=== PATIENT | male | born 1950 | race Caucasian/White ===

== ENCOUNTER 2024-08-06 09:43 | Observation (INO) ==
[2024-08-06] MEDS: OPTIRAY 320 125ml IV ONE (10:09)
--- NOTE | 2024-08-06 10:16 | Emergency Department Note ---
Impression & Plan Right hand weakness, Hypertension, Stroke-like symptoms ED Provider Note NAME: CLARISSA SEO AGE: 73 SEX: M : 1950 ARRIVES VIA: Walk-In INFORMANT: Patient ED PROVIDER(S): Orlin Kaur MD CHIEF COMPLAINT: Right shoulder pain, stroke symptoms PLAN: Disposition: Admit MEDICAL DECISION MAKING: The patient is a pleasant 73-year-old gentleman with a past medical history of hyperlipidemia who presents to the emergency department via walk-in accompanied by his for evaluation of right upper extremity weakness and numbness which she reports began at 9 AM this morning in the setting of having right shoulder pain that he woke up with which he describes as being typical for him when he sleeps on that side. 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 He repors mild lightheadedness. He denies taking blood thinners. He reports he took 2 Excedrin when he was at work because that was all they had and understood that he should take aspirin for symptoms that he is having. He denies chest pain or history of exertional chest pain. He denies recent illness. Given the patient's last known well with onset of right upper extremity weakness stroke alert was activated from triage. On evaluation patient no acute distress, afebrile with blood pressure elevated in the 180s/100s and otherwise stable vital signs. He exhibits equivocal weakness with crane service technician though with increased intention has symmetric strength with crane service technician. Otherwise no focal neurologic deficits noted. EKG is without overt acute ischemia. 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 Chest x-ray negative for acute cardiopulmonary process per my preliminary independent or potation. Case was [place] [facility] [place] Appreciate consultation recommendations and evaluation at bedside via telestroke monitor. Following his assessment of the patient where symptoms are minimal to resolved and on further discussion of TNK, patient agreed/preferred to not recieved TNK at this time. Symptoms are suspicious for possible stroke and recommends daily baby aspirin and Plavix load. Recommends admission for further stroke assessment including MRI. CT of the head and CTA of the head and neck were negative for ICH, ischemia or severe narrowing occlusion of large vessels per formal radiology interpretation. CTA of the chest also negative for acute aortic pathology, PE or acute cardiopulmonary process otherwise. WBC, H/H and platelets within normal limits. Chemistry without metabolic acidosis. Electrolytes and LFTs are unremarkable. High-sensitivity troponin 12.5, within normal limits. UA without evidence of infection. Case was discussed with Paula Wild PAC, with Dr. Hernandez [facility] hospitalist who will evaluate the patient for admission. Triage Nursing notes reviewed and agree them. Prior/external medical records reviewed Vital Signs: reviewed Differential diagnosis: Infection, dehydration, metabolic abnormality, hypo/hyperglycemia, electrolyte disturbance, anemia, hypoxia, cardiac sources, intracerebral event, toxicologic, neurologic, as well as other pathologies. ER treatment provided: See below. Diagnostics interpreted by me: ECG: Normal sinus rhythm, 74 bpm, no ectopy, right bundle branch block, left anterior fascicular block, no overt ST ovation or depression, QTc 479 QRS 164. Cardiac Monitoring: An order for continuous cardiac monitoring was placed and demonstrated Normal sinus rhythm, 74 bpm, no ectopy. Laboratory studies: See below Imaging studies: See below Consultation(s): [place]. Diop, [facility] Paula Wild PAC, with Dr. Hernandez [facility] hospitalist. HPI: The patient is a pleasant 73-year-old gentleman with a past medical history of hyperlipidemia who presents to the emergency department via walk-in accompanied by his for evaluation of right upper extremity weakness and numbness which she reports began at 9 AM this morning in the setting of having right shoulder pain that he woke up with which he describes as being typical for him when he sleeps on that side. 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 He repors mild lightheadedness. He denies taking blood thinners. He reports he took 2 Excedrin when he was at work because that was all they had and understood that he should take aspirin for symptoms that he is having. He denies chest pain or history of exertional chest pain. He denies recent illness. ROS: See above HPI for pertinent positives & negatives. A total of 10 systems reviewed and were otherwise negative. VITALS:See Below PHYSICAL EXAMINATION: GENERAL: Awake, alert, in no distress HENT: Normocephalic, atraumatic. Oropharynx with dry mucous membranes and otherwise unremarkable. EYES: Normal conjunctiva. Sclera non-icteric. EOMI. No nystamgus. PEARRL. NECK: Supple. No nuchal rigidity. FROM. No JVD. RESPIRATORY: Clear to auscultation. CARDIAC: Regular rate, normal rhythm. Extremities warm and well perfused. Pulses equal. ABDOMEN: Soft, non-distended. No tenderness to palpation. No rebound or guarding. No masses. MUSCULOSKELETAL: Chest examination reveals no tenderness. The back is symmetrical on inspection without obvious abnormality. There is no CVA tenderness to palpation. No joint edema. LOWER EXTREMITIES: Calves are equal size bilaterally and non-tender. No edema. No discoloration. NEURO: CN II-XII grossly intact. Speech is fluent. Exhibits equivocal weakness with crane service technician though with increased intention has symmetric strength with crane service technician. 5/5 strength and SILT x 4 extremities. Cerebellar function intact including [id number], alternating palms, [id number]. SKIN: No rash or jaundice noted. 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 Low back pain syndrome Social History Smoking Status: Never smoker Hx Alcohol Use: No Hx Substance Use: No Preferred Language: [place] Costume Rental Clerk Required: No Beliefs That Will Affect Care: None Current Living Situation: Spouse Other Information That Helps Us Care for You: No Feels Safe at Home: Yes Safety Concerns: Feels Safe At This Time Allergies Allergies Allergy/AdvReac Type Severity Reaction Status Date / Time No Known Allergies Allergy Unknown Verified 02/07/22 10:45 Home Meds Home Medications Medication Instructions Recorded Confirmed aspirin 81 mg tablet,delayed 81 mg PO DAILY 04/27/20 08/06/24 release simvastatin 40 mg tablet 40 mg PO DAILY 04/27/20 08/06/24 Results & Data (ED) Vital Signs Vital Signs - 24 hr 08/06/24 09:49 08/06/24 09:57 08/06/24 10:00 Temperature 36.1 C L Temperature Source Temporal Artery Scan Pulse Rate 75 Pulse Rate [Apical] 72 Pulse Rate from SpO2 Sensor Pulse Rhythm [Apical] Pulse Strength [Apical] Respiratory Rate 16 23 Respiratory Effort / Characteristics Non-Labored Spontaneous Non-Labored Respiratory Depth Normal Normal Respiratory Pattern Blood Pressure 184/103 H Blood Pressure [Right Arm] 193/106 H Blood Pressure Mean 130 Blood Pressure Mean [Right Arm] 135 Blood Pressure Position [Right Arm] Pulse Oximetry 96 98 98 Oxygen Delivery Method Room Air Room Air Room Air Sepsis Recent Fever Within 48 Hours No Sepsis New/Unexplained Change in Mental Status No Sepsis Action Taken by Nursing No Action Required 08/06/24 10:19 08/06/24 10:23 08/06/24 10:30 Temperature Temperature Source Pulse Rate 69 Pulse Rate [Apical] 69 Pulse Rate from SpO2 Sensor Pulse Rhythm [Apical] Pulse Strength [Apical] Respiratory Rate 20 Respiratory Effort / Characteristics Non-Labored Respiratory Depth Normal Respiratory Pattern Blood Pressure 175/114 H Blood Pressure [Right Arm] 166/107 H Blood Pressure Mean 129 Blood Pressure Mean [Right Arm] 126 Blood Pressure Position [Right Arm] Pulse Oximetry 95 Oxygen Delivery Method Room Air Sepsis Recent Fever Within 48 Hours Sepsis New/Unexplained Change in Mental Status Sepsis Action Taken by Nursing 08/06/24 10:42 08/06/24 10:53 08/06/24 11:12 Temperature Temperature Source Pulse Rate 70 69 Pulse Rate [Apical] Pulse Rate from SpO2 Sensor 71 69 Pulse Rhythm [Apical] Pulse Strength [Apical] Respiratory Rate 16 14 Respiratory Effort / Characteristics Respiratory Depth Respiratory Pattern Blood Pressure 186/106 H 166/111 H 173/101 H Blood Pressure [Right Arm] Blood Pressure Mean 132 133 125 Blood Pressure Mean [Right Arm] Blood Pressure Position [Right Arm] Pulse Oximetry 98 96 Oxygen Delivery Method Sepsis Recent Fever Within 48 Hours Sepsis New/Unexplained Change in Mental Status Sepsis Action Taken by Nursing 08/06/24 11:17 08/06/24 11:30 Temperature Temperature Source Pulse Rate Pulse Rate [Apical] 66 Pulse Rate from SpO2 Sensor Pulse Rhythm [Apical] Regular Pulse Strength [Apical] Normal Respiratory Rate 20 Respiratory Effort / Characteristics Non-Labored Spontaneous Respiratory Depth Normal Respiratory Pattern Regular Blood Pressure 158/102 H Blood Pressure [Right Arm] 174/98 H Blood Pressure Mean 127 Blood Pressure Mean [Right Arm] 123 Blood Pressure Position [Right Arm] Lying Pulse Oximetry 96 Oxygen Delivery Method Room Air Sepsis Recent Fever Within 48 Hours Sepsis New/Unexplained Change in Mental Status Sepsis Action Taken by Nursing Laboratory Data Attestation: I reviewed the patient's lab results. 08/06/24 10:01 08/06/24 10:01 Lab Results 08/06/24 08/06/24 08/06/24 Range/Units 09:59 10:01 10:46 WBC 5.20 (4.8-10.8) K/ul RBC 5.50 (4.70-6.10) M/uL Hgb 16.9 (14.0-18.0) g/dl Hct 50.5 (42.0-52.0) % MCV 91.8 (80.0-100.0) fL MCH 30.7 (25.0-34.0) pg MCHC 33.5 (32.0-36.0) g/dL RDW Std Deviation 41.9 (36.4-46.3) fL RDW Coeff of Jonathan 12.5 (11.5-14.5) % Plt Count 235 (130-400) K/uL MPV 10.1 (9.4-12.4) fL Immature Gran % (Auto) 0.4 % Neut % (Auto) 65.6 % Lymph % (Auto) 19.8 % [place] % (Auto) 11.3 % Eos % (Auto) 2.3 % Baso % (Auto) 0.6 % Neut # (Auto) 3.41 (1.40-6.50) K/uL Lymph # (Auto) 1.03 L (1.20-3.40) K/uL [place] # (Auto) 0.59 (0.11-0.59) K/uL Eos # (Auto) 0.12 (0.00-0.50) K/uL Baso # (Auto) 0.03 (0.00-0.20) K/uL Immature Gran # (Auto) 0.02 (0.01-0.20) K/uL PT 10.4 (9.0-12.0) Seconds INR 1.0 (0.9-1.1) APTT 27 (21-31) Seconds PTT Ratio 1.0 Sodium 141 (136-145) mmol/L Potassium 3.8 (3.5-5.1) mmol/L Chloride 105 (98-107) mmol/L Carbon Dioxide 30 (21-32) mmol/L Anion Gap 6 (3-11) BUN 18 (6-23) mg/dl Creatinine 0.99 (0.6-1.4) mg/dl Est Cr Clr Drug Dosing 81.5 ml/min eGFR 80.94 BUN/Creatinine Ratio 18.2 (10-20) Glucose 101 H (70-99(Fasting)) mg/dl POC Glucose 106 H (70-99) mg/dl Calcium 9.5 (8.6-10.3) mg/dl Magnesium 2.0 (1.7-2.4) mg/dl Total Bilirubin 0.8 (0.2-1.0) mg/dl AST 26 (13-39) U/L ALT 29 (7-52) U/L Alkaline Phosphatase 59 (34-104) U/L Troponin I High Sens 12.5 (0-20) pg/ml Total Protein 7.0 (6.0-8.3) gm/dl Albumin 4.5 (3.4-5.0) gm/dl Globulin 2.5 (2.5-4.0) gm/dl Albumin/Globulin Ratio 1.8 (0.9-2) Urine Color Yellow Urine Appearance Clear (Clear) Urine pH 7.0 (4.5-7.5) Ur Specific [place] 1.023 (1.000-1.030) Urine Protein Negative (Negative) Urine Glucose (UA) Negative (Negative) Urine Ketones Negative (Negative) Urine Blood Negative (Negative) Urine Nitrite Negative (Negative) Urine Bilirubin Negative (Negative) Urine Urobilinogen Negative (Negative) Ur Leukocyte Esterase Negative (Negative) Administered Medications Discontinued Medications Sodium Chloride (Nss) 1,000 mls @ 999 mls/hr IV .Q1H1M ONE Stop: 08/06/24 11:07 Last Infusion: 08/06/24 12:00 Dose: Infused Documented By: Admin: 08/06/24 10:18 Dose: 999 mls/hr Documented By: KATHERINE Acetaminophen (Ofirmev) 1,000 mg in 100 mls @ 400 mls/hr IV NOW STA Stop: 08/06/24 10:21 Last Infusion: 08/06/24 10:39 Dose: Infused Documented By: Admin: 08/06/24 10:17 Dose: 400 mls/hr Documented By: KATHERINE Ioversol (Optiray 320 125ml) 119 ml IV ONCE ONE Stop: 08/06/24 10:09 Last Admin: 08/06/24 10:09 Dose: 119 ml Documented By: NED Imaging Data Radiologist's Impression: Chest CTA 08/06/24 10:05 CT angio neck with con, CT angio head w con, CT angio chest dissec wo/w con, CT head/brain wo con CLINICAL HISTORY: stroke sx, RUE weak, R shoulder pain, HTN TECHNIQUE: Contiguous axial CT images of the head were acquired from the base of the skull to the vertex without intravenous contrast administration. CT angiography of the head and neck was performed following intravenous administration of iodinated contrast. Coronal and sagittal MIPS were obtained from the axial data set and were submitted for review. Automated dose lowering techniques and/or adjustment according to patient size were utilized for this examination. All measurements were calculated based on NASCET criteria. CT DOSE: 2762.53 mGy.cm Comparison: None available at the time of this dictation. FINDINGS: CT head: There is no acute intracranial hemorrhage or evidence of acute territorial infarction. No shift of the midline structures, mass effect, or extra-axial abnormalities are shown. Lungs and soft tissues are unremarkable. CTA Neck: A 3 vessel aortic arch is shown. There is no significant atherosclerotic plaque in the aortic arch or the origins of the innominate, left common carotid, and left subclavian arteries. The common carotid, external carotid, cervical segments of the internal carotid arteries, and the cervical segments of the vertebral arteries are patent without hemodynamically significant stenosis. The left vertebral artery is dominant. CTA Head: The anterior and posterior cerebral circulations are patent. No hemodynamically significant stenosis, aneurysm, dissection, or arteriovenous malformation is shown. IMPRESSION: 1. No acute intracranial hemorrhage, evidence of acute territorial infarction, or other acute intracranial disease process. 2. No occlusion, hemodynamically significant stenosis, or dissection in the major cervical arteries. 3. No occlusion, hemodynamically significant stenosis, aneurysm, dissection, or arteriovenous malformation in the major intracranial arteries. Assessment of stenosis of the internal carotid arteries is based on NASCET criteria. ACT 112: Negative or not required by law. Electronically signed by: Oleg Marshall M.D. 08/06/2024 10:41 AM Chest X-Ray 08/06/24 10:05 XR chest 1V portable HISTORY: 73 years-old Male neuro deficit, acute stroke suspected acute stroke like symptoms COMPARISON: CTA chest of same day TECHNIQUE: AP view of the chest FINDINGS: Cardiac silhouette is mildly enlarged. There is no pneumothorax, pleural effusion or overt pulmonary edema. Mild linear subsegmental bibasilar atelectasis versus scarring. Bones appear grossly intact. IMPRESSION: No acute process. ACT 112: Negative or not required by law. The above report was generated using voice recognition software. It may contain grammatical, syntax or spelling errors. Electronically signed by: Edwin Dooley M.D. 08/06/2024 10:[address] 08/06/24 10:05 CT angio neck with con, CT angio head w con, CT angio chest dissec wo/w con, CT head/brain wo con CLINICAL HISTORY: stroke sx, RUE weak, R shoulder pain, HTN TECHNIQUE: Contiguous axial CT images of the head were acquired from the base of the skull to the vertex without intravenous contrast administration. CT angiography of the head and neck was performed following intravenous administration of iodinated contrast. Coronal and sagittal MIPS were obtained from the axial data set and were submitted for review. Automated dose lowering techniques and/or adjustment according to patient size were utilized for this examination. All measurements were calculated based on NASCET criteria. CT DOSE: 2762.53 mGy.cm Comparison: None available at the time of this dictation. FINDINGS: CT head: There is no acute intracranial hemorrhage or evidence of acute territorial infarction. No shift of the midline structures, mass effect, or extra-axial abnormalities are shown. Lungs and soft tissues are unremarkable. CTA Neck: A 3 vessel aortic arch is shown. There is no significant atherosclerotic plaque in the aortic arch or the origins of the innominate, left common carotid, and left subclavian arteries. The common carotid, external carotid, cervical segments of the internal carotid arteries, and the cervical segments of the vertebral arteries are patent without hemodynamically significant stenosis. The left vertebral artery is dominant. CTA Head: The anterior and posterior cerebral circulations are patent. No hemodynamically significant stenosis, aneurysm, dissection, or arteriovenous malformation is shown. IMPRESSION: 1. No acute intracranial hemorrhage, evidence of acute territorial infarction, or other acute intracranial disease process. 2. No occlusion, hemodynamically significant stenosis, or dissection in the major cervical arteries. 3. No occlusion, hemodynamically significant stenosis, aneurysm, dissection, or arteriovenous malformation in the major intracranial arteries. Assessment of stenosis of the internal carotid arteries is based on NASCET criteria. ACT 112: Negative or not required by law. Electronically signed by: Oleg Marshall M.D. 08/06/2024 10:41 AM Head CTA 08/06/24 10:05 CT angio neck with con, CT angio head w con, CT angio chest dissec wo/w con, CT head/brain wo con CLINICAL HISTORY: stroke sx, RUE weak, R shoulder pain, HTN TECHNIQUE: Contiguous axial CT images of the head were acquired from the base of the skull to the vertex without intravenous contrast administration. CT angiography of the head and neck was performed following intravenous administration of iodinated contrast. Coronal and sagittal MIPS were obtained from the axial data set and were submitted for review. Automated dose lowering techniques and/or adjustment according to patient size were utilized for this examination. All measurements were calculated based on NASCET criteria. CT DOSE: 2762.53 mGy.cm Comparison: None available at the time of this dictation. FINDINGS: CT head: There is no acute intracranial hemorrhage or evidence of acute territorial infarction. No shift of the midline structures, mass effect, or extra-axial abnormalities are shown. Lungs and soft tissues are unremarkable. CTA Neck: A 3 vessel aortic arch is shown. There is no significant atherosclerotic plaque in the aortic arch or the origins of the innominate, left common carotid, and left subclavian arteries. The common carotid, external carotid, cervical segments of the internal carotid arteries, and the cervical segments of the vertebral arteries are patent without hemodynamically significant stenosis. The left vertebral artery is dominant. CTA Head: The anterior and posterior cerebral circulations are patent. No hemodynamically significant stenosis, aneurysm, dissection, or arteriovenous malformation is shown. IMPRESSION: 1. No acute intracranial hemorrhage, evidence of acute territorial infarction, or other acute intracranial disease process. 2. No occlusion, hemodynamically significant stenosis, or dissection in the major cervical arteries. 3. No occlusion, hemodynamically significant stenosis, aneurysm, dissection, or arteriovenous malformation in the major intracranial arteries. Assessment of stenosis of the internal carotid arteries is based on NASCET criteria. ACT 112: Negative or not required by law. Electronically signed by: Oleg Marshall M.D. 08/06/2024 10:41 AM Neck CTA 08/06/24 10:05 CT angio neck with con, CT angio head w con, CT angio chest dissec wo/w con, CT head/brain wo con CLINICAL HISTORY: stroke sx, RUE weak, R shoulder pain, HTN TECHNIQUE: Contiguous axial CT images of the head were acquired from the base of the skull to the vertex without intravenous contrast administration. CT angiography of the head and neck was performed following intravenous administration of iodinated contrast. Coronal and sagittal MIPS were obtained from the axial data set and were submitted for review. Automated dose lowering techniques and/or adjustment according to patient size were utilized for this examination. All measurements were calculated based on NASCET criteria. CT DOSE: 2762.53 mGy.cm Comparison: None available at the time of this dictation. FINDINGS: CT head: There is no acute intracranial hemorrhage or evidence of acute territorial infarction. No shift of the midline structures, mass effect, or extra-axial abnormalities are shown. Lungs and soft tissues are unremarkable. CTA Neck: A 3 vessel aortic arch is shown. There is no significant atherosclerotic plaque in the aortic arch or the origins of the innominate, left common carotid, and left subclavian arteries. The common carotid, external carotid, cervical segments of the internal carotid arteries, and the cervical segments of the vertebral arteries are patent without hemodynamically significant stenosis. The left vertebral artery is dominant. CTA Head: The anterior and posterior cerebral circulations are patent. No hemodynamically significant stenosis, aneurysm, dissection, or arteriovenous malformation is shown. IMPRESSION: 1. No acute intracranial hemorrhage, evidence of acute territorial infarction, or other acute intracranial disease process. 2. No occlusion, hemodynamically significant stenosis, or dissection in the major cervical arteries. 3. No occlusion, hemodynamically significant stenosis, aneurysm, dissection, or arteriovenous malformation in the major intracranial arteries. Assessment of stenosis of the internal carotid arteries is based on NASCET criteria. ACT 112: Negative or not required by law. Electronically signed by: Oleg Marshall M.D. 08/06/2024 10:41 AM Discharge Plan Visit Data Chief Complaint: Stroke Alert Stated Complaint: RIGHT SIDED NUMBNESS, THINKS MAY BE HEART ATT ED Provider: Orlin Kaur Discharge Problem: Right hand weakness, Hypertension, Stroke-like symptoms Patient Disposition: Admitted As Inpatient Discharge Instructions Interventions: ED Discharge Assessment Last Done: 08/06/24 14:34 Discharge Problem: Hypertension Qualifiers: Hypertension type: unspecified Qualified Code(s): I10 - Essential (primary) hypertension
[2024-08-06 10:17] LABS: Basophils # (auto) 0.03 K/uL (0.00-0.20); Basophils % (auto) 0.6 %; Eosinophils # (auto) 0.12 K/uL (0.00-0.50); Eosinophils % (auto) 2.3 %; Hematocrit (blood only) 50.5 % (42.0-52.0); Hemoglobin 16.9 g/dl (14.0-18.0); Immature Granulocytes # (auto) 0.02 K/uL (0.01-0.20); Immature Granulocytes % (auto) 0.4 %; Lymphocytes # (auto) 1.03 K/uL (1.20-3.40); Lymphocytes % (auto) 19.8 %; Mean Corpuscular Hemoglobin 30.7 pg (25.0-34.0); Mean Corpuscular Hgb Conc 33.5 g/dL (32.0-36.0); Mean Corpuscular Volume 91.8 fL (80.0-100.0); Mean Platelet Volume 10.1 fL (9.4-12.4); Monocytes # (auto) 0.59 K/uL (0.11-0.59); Monocytes % (auto) 11.3 %; Neutrophils # (auto) 3.41 K/uL (1.40-6.50); Neutrophils % (auto) 65.6 %; Platelet Count 235 K/uL (130-400); RDW Coefficient of Variation 12.5 % (11.5-14.5); RDW Standard Deviation 41.9 fL (36.4-46.3)
[2024-08-06] MEDS: ACETAMINOPHEN 1,000 MG/100 ML VIAL IV STA (10:17)
[2024-08-06] MEDS: SODIUM CHLORIDE 0.9% 1,000 ML IV ONE (10:18)
[2024-08-06 10:40] LABS: Albumin Globulin Ratio 1.8 (0.9-2); Albumin Level 4.5 gm/dl (3.4-5.0); BUN Creatinine Ratio 18.2 (10-20); Bilirubin,Total 0.8 mg/dl (0.2-1.0); Calcium 9.5 mg/dl (8.6-10.3); Creatinine Clr Calc Pharmacy 81.5 ml/min; Globulin 2.5 gm/dl (2.5-4.0); Potassium 3.8 mmol/L (3.5-5.1)
--- NOTE | 2024-08-06 10:42 | CT Scan Report ---
CT angio neck with con, CT angio head w con, CT angio chest dissec wo/w con, CT head/brain wo con CLINICAL HISTORY: stroke sx, RUE weak, R shoulder pain, HTN TECHNIQUE: Contiguous axial CT images of the head were acquired from the base of the skull to the nahum jigar without intravenous contrast administration. CT angiography of the head and neck was performed f ollowing intravenous administration of iodinated contrast. Coronal and sagittal MIPS were obtained fr om the axial data set and were submitted for review. Automated dose lowering techniques and/or adjus tment according to patient size were utilized for this examination. All measurements were calculated based on NASCET criteria. CT DOSE: 2762.53 mGy.cm Comparison: None available at the time of this dictation. FINDINGS: CT head: There is no acute intracranial hemorrhage or evidence of acute territorial infarction. No sh ift of the midline structures, mass effect, or extra-axial abnormalities are shown. Lungs and soft tissues are unremarkable. CTA Neck: A 3 vessel aortic arch is shown. There is no significant atherosclerotic plaque in the aor tic arch or the origins of the innominate, left common carotid, and left subclavian arteries. The co mmon carotid, external carotid, cervical segments of the internal carotid arteries, and the cervical segments of the vertebral arteries are patent without hemodynamically significant stenosis. The left vertebral artery is dominant. CTA Head: The anterior and posterior cerebral circulations are patent. No hemodynamically significan t stenosis, aneurysm, dissection, or arteriovenous malformation is shown. IMPRESSION: 1. No acute intracranial hemorrhage, evidence of acute territorial infarction, or other acute intrac ranial disease process. 2. No occlusion, hemodynamically significant stenosis, or dissection in the major cervical arteries. 3. No occlusion, hemodynamically significant stenosis, aneurysm, dissection, or arteriovenous malfor mation in the major intracranial arteries. Assessment of stenosis of the internal carotid arteries is based on NASCET criteria. ACT 112: Negative or not required by law. Electronically signed by: Oleg Marshall M.D. 08/06/2024 10:41 AM
[2024-08-06 10:46] LABS: Troponin I High Sensitivity 12.5 pg/ml (0-20)
--- NOTE | 2024-08-06 10:57 | XRay Report ---
XR chest 1V portable HISTORY: 73 years-old Male neuro deficit, acute stroke suspected acute stroke like symptoms COMPARISON: CTA chest of same day TECHNIQUE: AP view of the chest FINDINGS: Cardiac silhouette is mildly enlarged. There is no pneumothorax, pleural effusion or overt pulmonary edema. Mild linear subsegmental bibasilar atelectasis versus scarring. Bones appear grossly intact. IMPRESSION: No acute process. ACT 112: Negative or not required by law. The above report was generated using voice recognition software. It may contain grammatical, syntax o r spelling errors. Electronically signed by: Edwin Dooley M.D. 08/06/2024 10:55 AM
[2024-08-06 11:07] LABS: Appearance Urine Clear (Clear); Bilirubin Urine Negative (Negative); Blood Urine Negative (Negative); Color Urine Yellow; Glucose Urine UA Negative (Negative); Ketones Urine Negative (Negative); Leukocyte Esterase Urine Negative (Negative); Nitrite Urine Negative (Negative); Protein Urine Negative (Negative); Specific Gravity Urine 1.023 (1.000-1.030); Urobilinogen Urine Negative (Negative)
--- NOTE | 2024-08-06 11:30 | Electrocardiogram Report ---
Test Reason : Blood Pressure : */* mmHG Vent. Rate : 74 BPM Atrial Rate : 74 BPM P-R Int : 180 ms QRS Dur : 164 ms QT Int : 432 ms P-R-T Axes : 36 -69 -8 degrees QTcB Int : 479 ms Normal sinus rhythm Right bundle branch block Left anterior fascicular block Bifascicular block Abnormal ECG When compared with ECG of 07-Feb-2005 22:40, DE interval has decreased (RBBB and left anterior fascicular block) is now Present Confirmed by Thee Elizondo ([id number]) on 08/06/2024 11:29:49 AM Referred By: REFERRED SELF Confirmed By: Thee Elizondo
--- NOTE | 2024-08-06 11:48 | Communication Note ---
Date of Service: August 06, 2024 Attending Addendum: Case reviewed with the advanced practitioner. I have personally performed a history and physical examination on the patient. I have reviewed the advanced practitioner's documentation on the date of service referenced in note, and I agree with, and take responsibility for the plan of care. please refer to her notes for full details patient seen and examined, records reviewed by myself as well on exam, patient seen resting in bed, comfortable R upper arm weakness resolved R hand weakness mostly resolved no chest pain, dyspnea, palpitations, dizziness, headache no other neurologic symptoms VS noted and reviewed oriented x 3, not in distress, speaks in sentences with no effort nor accessory muscle use normal rate, regular rhythm, no murmurs clear breath sounds bilaterally non distended, soft, nontender no bipedal edema, erythema, warmth Neuro- alert, oriented x 3; CN 2-12 grossly intact; motor 5/5 bilate rally;sensation 100% on all extremities; no other gross focal neurologic deficits Skin- warm & dry all labs, imaging noted and reviewed ASSESSMENT AND PLAN> 73 year old male with history of dyslipidemia, pre diabetes presenting with R upper arm weakness which started at 9am today. RIGHT UPPER ARM, HAND WEAKNESS, POSSIBLE TIA CT head: no acute process CT angio head and neck: unrevealing Brain MRI: no acute process symptoms already resolving at the ER Stroke Alert called, [facility] did NOT recommend TNK already on ASA, recommend to add Plavix already on Simvastatin Stroke Protocol ordered keep systolic BP 160s-170s for permissive hypertension Echocardiogram Lipid Panel, A1c [facility] Neurology consultation HYPERTENSION no known history permissive Hypertension in light of possible TIA vs acute CVA keep systolic BP 160s-170s for permissive hypertension PRN Hydralazine DYSLIPIDEMIA already on Atorvastatin 40mg po daily check lipid profile PREDIABETES check A1c BIFASCICULAR BLOCK not seen on previous EKG many years ago check echo monitor in Telemetry other diagnoses and plan of care as per advanced practitioner's notes Robert Hernandez MD
[2024-08-06 12:02] LABS: Partial Thromboplastin Time 27 Seconds (21-31); Prothrombin Time 10.4 Seconds (9.0-12.0)
--- NOTE | 2024-08-06 12:34 | History & Physical Report ---
Date of Service August 06, 2024 Assessment & Plan (1) Stroke-like symptoms: (2) Hypertension: Plan Assessment and plan: RUE weakness CVA ruled outpossible TIA: Head/neck/chest CTA unremarkable, head CT negative Head MRI negative, differential diagnosis includes carpal tunnel/cervical radiculopathy Permissive hypertension x 24 hoursPlavix/aspirin recommended by neuro Check echo/head MRI, continue neurochecks Hx HLD/prediabetes: Continue statin, check lipid panel, check A1c Full code DVT prophylaxis: SCDs A total of 60 minutes was spent on chart review/reviewing lab/diagnostic testing/discussion with consultants/facilitation of plan of care History of Present Illness Chief Complaint: Right upper extremity numbness. Primary Care Provider: Zeyad Brownlee MD The patient is a 73-year-old male with a past medical history of hyperlipidemia, prediabetes, transient global amnesia, prostate CA who presents to the ED on 08/06/2024 with complaints of right upper extremity numbness/weakness. Patient reports waking up this morning around 9 AM noticing that his hand felt numb and that the numbness traveled up to his right arm. He took his 81 mg of aspirin and took 2 Excedrin and came to the ER. He reports being compliant with his daily aspirin. On arrival to the ED stroke alert was called and neurostroke recommended Plavix load and daily aspirin. TNK was not indicated at this time. The patient had no other neurodeficits on exam Head CT was negative. Head/neck CTA was negative. Chest CTA was negative The patient's labs are fairly unremarkable The patient will be admitted for further monitoring Allergies Allergy/AdvReac Type Severity Reaction Status Date / Time No Known Allergies Allergy Unknown Verified 02/07/22 10:45 Home Medications Medication Instructions Recorded Confirmed Type aspirin 81 mg tablet,delayed 81 mg PO DAILY 04/27/20 08/06/24 History release simvastatin 40 mg tablet 40 mg PO DAILY 04/27/20 08/06/24 History Past Med/Surg History Problem List (Updated 08/06/24 @ 11:31 by Orlin Kaur MD) Stroke-like symptoms (Acute) Hypertension (Acute) Right hand weakness (Acute) 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 Low back pain syndrome Social History Smoking Status: Never smoker Feels Safe at Home: Yes Review of Systems Review of Systems: All systems reviewed & are unremarkable except as noted in HPI & below Physical Exam Constitutional: WD/WN, vitals as above Eyes: PERRL, conjunctivae normal, anicteric sclerae ENMT: external ear and nose normal, oropharynx normal Neck: trachea midline, no thyromegaly Respiratory: normal respiratory effort, lungs clear to auscultation Cardiovascular: RRR, no murmur, no edema Gastrointestinal (Abdomen): normal bowel sounds, soft, nontender, no hepatosplenomegaly Musculoskeletal: no cyanosis or clubbing, extremities motor strength 5/5 Skin: no rashes, warm and dry Neurologic: PERRL, EOMI, accommodation nl, no face palsy, no dysarthria (Still complaining of right hand numbness, strength is equal) Psychiatric: A+Ox3, euthymic affect Lymphatic: no cervical or axillary lymphadenopathy Results & Data Results & Data Vital Signs (Past 12 Hours) Vital Signs Temp Pulse Pulse Resp BP BP Pulse Ox 08/06/24 11:17 66 20 174/98 H 96 08/06/24 10:23 69 08/06/24 10:19 69 20 166/107 H 95 08/06/24 10:00 98 08/06/24 09:57 72 23 193/106 H 98 08/06/24 09:49 36.1 C L 75 16 184/103 H 96 O2 Del Method 08/06/24 11:17 Room Air 08/06/24 10:23 08/06/24 10:19 Room Air 08/06/24 10:00 Room Air 08/06/24 09:57 Room Air 08/06/24 09:49 Room Air Diagnostic Findings Laboratory Results WBC 5.20 K/ul (4.8-10.8) 08/06/24 10:01 RBC 5.50 M/uL (4.70-6.10) 08/06/24 10:01 Hgb 16.9 g/dl (14.0-18.0) 08/06/24 10:01 Hct 50.5 % (42.0-52.0) 08/06/24 10:01 MCV 91.8 fL (80.0-100.0) 08/06/24 10:01 MCH 30.7 pg (25.0-34.0) 08/06/24 10:01 MCHC 33.5 g/dL (32.0-36.0) 08/06/24 10:01 RDW Std Deviation 41.9 fL (36.4-46.3) 08/06/24 10:01 RDW Coeff of Jonathan 12.5 % (11.5-14.5) 08/06/24 10:01 Plt Count 235 K/uL (130-400) 08/06/24 10:01 MPV 10.1 fL (9.4-12.4) 08/06/24 10:01 Immature Gran % (Auto) 0.4 % 08/06/24 10:01 Neut % (Auto) 65.6 % 08/06/24 10:01 Lymph % (Auto) 19.8 % 08/06/24 10:01 [place] % (Auto) 11.3 % 08/06/24 10:01 Eos % (Auto) 2.3 % 08/06/24 10:01 Baso % (Auto) 0.6 % 08/06/24 10:01 Neut # (Auto) 3.41 K/uL (1.40-6.50) 08/06/24 10:01 Lymph # (Auto) 1.03 K/uL (1.20-3.40) L 08/06/24 10:01 [place] # (Auto) 0.59 K/uL (0.11-0.59) 08/06/24 10:01 Eos # (Auto) 0.12 K/uL (0.00-0.50) 08/06/24 10:01 Baso # (Auto) 0.03 K/uL (0.00-0.20) 08/06/24 10:01 Immature Gran # (Auto) 0.02 K/uL (0.01-0.20) 08/06/24 10:01 PT 10.4 Seconds (9.0-12.0) 08/06/24 10:01 INR 1.0 (0.9-1.1) 08/06/24 10:01 APTT 27 Seconds (21-31) 08/06/24 10:01 PTT Ratio 1.0 08/06/24 10:01 Sodium 141 mmol/L (136-145) 08/06/24 10:01 Potassium 3.8 mmol/L (3.5-5.1) 08/06/24 10:01 Chloride 105 mmol/L (98-107) 08/06/24 10:01 Carbon Dioxide 30 mmol/L (21-32) 08/06/24 10:01 Anion Gap 6 (3-11) 08/06/24 10:01 BUN 18 mg/dl (6-23) 08/06/24 10:01 Creatinine 0.99 mg/dl (0.6-1.4) 08/06/24 10:01 Est Cr Clr Drug Dosing 81.5 ml/min 08/06/24 10:01 eGFR 80.94 08/06/24 10:01 BUN/Creatinine Ratio 18.2 (10-20) 08/06/24 10:01 Glucose 101 mg/dl (70-99(Fasting)) H 08/06/24 10:01 POC Glucose 106 mg/dl (70-99) H 08/06/24 09:59 Calcium 9.5 mg/dl (8.6-10.3) 08/06/24 10:01 Magnesium 2.0 mg/dl (1.7-2.4) 08/06/24 10:01 Total Bilirubin 0.8 mg/dl (0.2-1.0) 08/06/24 10:01 AST 26 U/L (13-39) 08/06/24 10:01 ALT 29 U/L (7-52) 08/06/24 10:01 Alkaline Phosphatase 59 U/L (34-104) 08/06/24 10:01 Troponin I High Sens 12.5 pg/ml (0-20) 08/06/24 10:01 Total Protein 7.0 gm/dl (6.0-8.3) 08/06/24 10:01 Albumin 4.5 gm/dl (3.4-5.0) 08/06/24 10:01 Globulin 2.5 gm/dl (2.5-4.0) 08/06/24 10:01 Albumin/Globulin Ratio 1.8 (0.9-2) 08/06/24 10:01 Urine Color Yellow 08/06/24 10:46 Urine Appearance Clear (Clear) 08/06/24 10:46 Urine pH 7.0 (4.5-7.5) 08/06/24 10:46 Ur Specific [place] 1.023 (1.000-1.030) 08/06/24 10:46 Urine Protein Negative (Negative) 08/06/24 10:46 Urine Glucose (UA) Negative (Negative) 08/06/24 10:46 Urine Ketones Negative (Negative) 08/06/24 10:46 Urine Blood Negative (Negative) 08/06/24 10:46 Urine Nitrite Negative (Negative) 08/06/24 10:46 Urine Bilirubin Negative (Negative) 08/06/24 10:46 Urine Urobilinogen Negative (Negative) 08/06/24 10:46 Ur Leukocyte Esterase Negative (Negative) 08/06/24 10:46 Impressions Chest CTA 08/06/24 10:05 CT angio neck with con, CT angio head w con, CT angio chest dissec wo/w con, CT head/brain wo con CLINICAL HISTORY: stroke sx, RUE weak, R shoulder pain, HTN TECHNIQUE: Contiguous axial CT images of the head were acquired from the base of the skull to the vertex without intravenous contrast administration. CT angiography of the head and neck was performed following intravenous administration of iodinated contrast. Coronal and sagittal MIPS were obtained from the axial data set and were submitted for review. Automated dose lowering techniques and/or adjustment according to patient size were utilized for this examination. All measurements were calculated based on NASCET criteria. CT DOSE: 2762.53 mGy.cm Comparison: None available at the time of this dictation. FINDINGS: CT head: There is no acute intracranial hemorrhage or evidence of acute territorial infarction. No shift of the midline structures, mass effect, or extra-axial abnormalities are shown. Lungs and soft tissues are unremarkable. CTA Neck: A 3 vessel aortic arch is shown. There is no significant atherosclerotic plaque in the aortic arch or the origins of the innominate, left common carotid, and left subclavian arteries. The common carotid, external esquivel tid, cervical segments of the internal carotid arteries, and the cervical segments of the vertebral arteries are patent without hemodynamically significant stenosis. The left vertebral artery is dominant. CTA Head: The anterior and posterior cerebral circulations are patent. No hemodynamically significant stenosis, aneurysm, dissection, or arteriovenous malformation is shown. IMPRESSION: 1. No acute intracranial hemorrhage, evidence of acute territorial infarction, or other acute intracranial disease process. 2. No occlusion, hemodynamically significant stenosis, or dissection in the major cervical arteries. 3. No occlusion, hemodynamically significant stenosis, aneurysm, dissection, or arteriovenous malformation in the major intracranial arteries. Assessment of stenosis of the internal carotid arteries is based on NASCET criteria. ACT 112: Negative or not required by law. Electronically signed by: Oleg Marshall M.D. 08/06/2024 10:41 AM Chest X-Ray 08/06/24 10:05 XR chest 1V portable HISTORY: 73 years-old Male neuro deficit, acute stroke suspected acute stroke like symptoms COMPARISON: CTA chest of same day TECHNIQUE: AP view of the chest FINDINGS: Cardiac silhouette is mildly enlarged. There is no pneumothorax, pleural effusion or overt pulmonary edema. Mild linear subsegmental bibasilar atelectasis versus scarring. Bones appear grossly intact. IMPRESSION: No acute process. ACT 112: Negative or not required by law. The above report was generated using voice recognition software. It may contain grammatical, syntax or spelling errors. Electronically signed by: Edwin Dooley M.D. 08/06/2024 10:[address] 08/06/24 10:05 CT angio neck with con, CT angio head w con, CT angio chest dissec wo/w con, CT head/brain wo con CLINICAL HISTORY: stroke sx, RUE weak, R shoulder pain, HTN TECHNIQUE: Contiguous axial CT images of the head were acquired from the base of the skull to the vertex without intravenous contrast administration. CT angiography of the head and neck was performed following intravenous administration of iodinated contrast. Coronal and sagittal MIPS were obtained from the axial data set and were submitted for review. Automated dose lowering techniques and/or adjustment according to patient size were utilized for this examination. All measurements were calculated based on NASCET criteria. CT DOSE: 2762.53 mGy.cm Comparison: None available at the time of this dictation. FINDINGS: CT head: There is no acute intracranial hemorrhage or evidence of acute territorial infarction. No shift of the midline structures, mass effect, or extra-axial abnormalities are shown. Lungs and soft tissues are unremarkable. CTA Neck: A 3 vessel aortic arch is shown. There is no significant atherosclerotic plaque in the aortic arch or the origins of the innominate, left common carotid, and left subclavian arteries. The common carotid, external carotid, cervical segments of the internal carotid arteries, and the cervical segments of the vertebral arteries are patent without hemodynamically significant stenosis. The left vertebral artery is dominant. CTA Head: The anterior and posterior cerebral circulations are patent. No hemodynamically significant stenosis, aneurysm, dissection, or arteriovenous malformation is shown. IMPRESSION: 1. No acute intracranial hemorrhage, evidence of acute territorial infarction, or other acute intracranial disease process. 2. No occlusion, hemodynamically significant stenosis, or dissection in the major cervical arteries. 3. No occlusion, hemodynamically significant stenosis, aneurysm, dissection, or arteriovenous malformation in the major intracranial arteries. Assessment of stenosis of the internal carotid arteries is based on NASCET criteria. ACT 112: Negative or not required by law. Electronically signed by: Oleg Marshall M.D. 08/06/2024 10:41 AM Head CTA 08/06/24 10:05 CT angio neck with con, CT angio head w con, CT angio chest dissec wo/w con, CT head/brain wo con CLINICAL HISTORY: stroke sx, RUE weak, R shoulder pain, HTN TECHNIQUE: Contiguous axial CT images of the head were acquired from the base of the skull to the vertex without intravenous contrast administration. CT angiography of the head and neck was performed following intravenous administration of iodinated contrast. Coronal and sagittal MIPS were obtained from the axial data set and were submitted for review. Automated dose lowering techniques and/or adjustment according to patient size were utilized for this examination. All measurements were calculated based on NASCET criteria. CT DOSE: 2762.53 mGy.cm Comparison: None available at the time of this dictation. FINDINGS: CT head: There is no acute intracranial hemorrhage or evidence of acute territorial infarction. No shift of the midline structures, mass effect, or extra-axial abnormalities are shown. Lungs and soft tissues are unremarkable. CTA Neck: A 3 vessel aortic arch is shown. There is no significant atherosclerotic plaque in the aortic arch or the origins of the innominate, left common carotid, and left subclavian arteries. The common carotid, external carotid, cervical segments of the internal carotid arteries, and the cervical segments of the vertebral arteries are patent without hemodynamically significant stenosis. The left vertebral artery is dominant. CTA Head: The anterior and posterior cerebral circulations are patent. No hemodynamically significant stenosis, aneurysm, dissection, or arteriovenous malformation is shown. IMPRESSION: 1. No acute intracranial hemorrhage, evidence of acute territorial infarction, or other acute intracranial disease process. 2. No occlusion, hemodynamically significant stenosis, or dissection in the major cervical arteries. 3. No occlusion, hemodynamically significant stenosis, aneurysm, dissection, or arteriovenous malformation in the major intracranial arteries. Assessment of stenosis of the internal carotid arteries is based on NASCET criteria. ACT 112: Negative or not required by law. Electronically signed by: Oleg Marshall M.D. 08/06/2024 10:41 AM Neck CTA 08/06/24 10:05 CT angio neck with con, CT angio head w con, CT angio chest dissec wo/w con, CT head/brain wo con CLINICAL HISTORY: stroke sx, RUE weak, R shoulder pain, HTN TECHNIQUE: Contiguous axial CT images of the head were acquired from the base of the skull to the vertex without intravenous contrast administration. CT angiography of the head and neck was performed following intravenous administration of iodinated contrast. Coronal and sagittal MIPS were obtained from the axial data set and were submitted for review. Automated dose lowering techniques and/or adjustment according to patient size were utilized for this examination. All measurements were calculated based on NASCET criteria. CT DOSE: 2762.53 mGy.cm Comparison: None available at the time of this dictation. FINDINGS: CT head: There is no acute intracranial hemorrhage or evidence of acute territorial infarction. No shift of the midline structures, mass effect, or extra-axial abnormalities are shown. Lungs and soft tissues are unremarkable. CTA Neck: A 3 vessel aortic arch is shown. There is no significant atherosclerotic plaque in the aortic arch or the origins of the innominate, left common carotid, and left subclavian arteries. The common carotid, external carotid, cervical segments of the internal carotid arteries, and the cervical segments of the vertebral arteries are patent without hemodynamically significant stenosis. The left vertebral artery is dominant. CTA Head: The anterior and posterior cerebral circulations are patent. No hemodynamically significant stenosis, aneurysm, dissection, or arteriovenous malformation is shown. IMPRESSION: 1. No acute intracranial hemorrhage, evidence of acute territorial infarction, or other acute intracranial disease process. 2. No occlusion, hemodynamically significant stenosis, or dissection in the major cervical arteries. 3. No occlusion, hemodynamically significant stenosis, aneurysm, dissection, or arteriovenous malformation in the major intracranial arteries. Assessment of stenosis of the internal carotid arteries is based on NASCET criteria. ACT 112: Negative or not required by law. Electronically signed by: Oleg Marshall M.D. 08/06/2024 10:41 AM Brain MRI 08/06/24 11:48 MRI OF THE BRAIN WITHOUT IV CONTRAST CLINICAL HISTORY: Right upper extremity numbness. Weakness. Dizziness. COMPARISON STUDY: CT of the brain dated 08/06/2024. TECHNIQUE: MRI of the brain was performed utilizing various T1 and T2-weighted sequences in the axial, sagittal, and coronal planes. IV contrast was not administered for this examination. FINDINGS: Brain parenchyma: There is age-related involutional change noted moderate subcortical and periventricular microangiopathic disease. There is no hemorrhage or mass effect. There is no restricted diffusion to suggest acute ischemia. Gutierrez-white matter differentiation is preserved. No extra-axial fluid collection is seen. The cerebellar tonsils are normal in configuration. Ventricles, sulci, and cisterns: Prominent secondary to involutional change. Pituitary and sella: Unremarkable. Intracranial vasculature: Normal flow voids are maintained at the skull base. Orbits: The bony orbits are grossly intact. Orbital contents are normal in appearance. Sinuses and mastoids: Clear. Calvarium: Unremarkable. Cervical cord: Partially visualized cervical spinal cord is normal in morphology and signal intensity. IMPRESSION: No acute intracranial abnormality. ACT 112: Negative or not required by law. Electronically signed by: Tahir Medel M.D. 08/06/2024 12:57 PM
--- NOTE | 2024-08-06 12:58 | Magnetic Resonance Report ---
MRI OF THE BRAIN WITHOUT IV CONTRAST CLINICAL HISTORY: Right upper extremity numbness. Weakness. Dizziness. COMPARISON STUDY: CT of the brain dated 08/06/2024. TECHNIQUE: MRI of the brain was performed utilizing various T1 and T2-weighted sequences in the axial , sagittal, and coronal planes. IV contrast was not administered for this examination. FINDINGS: Brain parenchyma: There is age-related involutional change noted moderate subcortical and periventric ular microangiopathic disease. There is no hemorrhage or mass effect. There is no restricted diffusio n to suggest acute ischemia. Gutierrez-white matter differentiation is preserved. No extra-axial fluid col lection is seen. The cerebellar tonsils are normal in configuration. Ventricles, sulci, and cisterns: Prominent secondary to involutional change. Pituitary and sella: Unremarkable. Intracranial vasculature: Normal flow voids are maintained at the skull base. Orbits: The bony orbits are grossly intact. Orbital contents are normal in appearance. Sinuses and mastoids: Clear. Calvarium: Unremarkable. Cervical cord: Partially visualized cervical spinal cord is normal in morphology and signal intensity . IMPRESSION: No acute intracranial abnormality. ACT 112: Negative or not required by law. Electronically signed by: Tahir Medel M.D. 08/06/2024 12:57 PM
[2024-08-06] MEDS ORDERED: PHARMACIST DISCHARGE MED REC CONSULT PRN (14:40)
[2024-08-06] MEDS ORDERED: hydrALAZINE HCL 20 MG/ML VIAL IV PRN (14:40)
[2024-08-06] MEDS ORDERED: ACETAMINOPHEN 325 MG TAB PO PRN (14:40)
--- OUTSIDE RECORDS SUMMARY | 2024-08-06 15:32 | External Medical Summary | Summary of Care ---
Author Name Unknown Organization [facility] Address [address] [place] [address] Phone [phone] Care Team Providers Care Regional Service Manager Name Role Phone Zeyad Brownlee MD Primary Care Provider + Reason for Visit * Reason Comments eRx-Medication Refill Encounter Details Date Type Department Care Team (Late st Contact Info) Description 02/21/2024 Refill General Internal Medicine [facility] [address] [place] [address] Zeyad Brownlee MD [address] [place] [address] Mixed hyperlipidemia Allergies No known active allergiesdocumented as of this encounter (statuses as of 02/22/2024) Medications Medication Sig Dispensed Refills Start Date End Date Status fish oil concentrate (OMEGA-3) 1000 MG CAPS Take 1 Capsule by mouth in the morning. 60 Cap 5 11/05/2018 Active Ibuprofen 200 MG Oral Tablet Take 1 Tablet by mouth every 4 hours as needed for Pain. 100 Tab 5 11/05/2018 Active Multiple Vitamin Tablet Take 1 Tablet by mouth in the morning. 0 11/05/2018 Active Sildenafil Citrate 25 MG Oral Tablet Take 1 Tablet by mouth once. 1-4 hours before intercourse, no more than 1 dose in 24 hours. 10 Tab 5 11/05/2018 Active aspirin enteric coated 81 MG TBEC Take 1 Tablet by mouth in the morning. 100 Tab 3 11/05/2018 Active Cholecalciferol (VITAMIN D3) 2000 units Capsule Take 1 Capsule by mouth in the morning. 30 Cap 5 11/05/2018 Active Zinc 50 MG Oral Tablet Take 1 Tablet by mouth in the morning. 0 Active Simvastatin 40 MG Oral Tablet (Zocor)Indications:M ixed hyperlipidemia Take 1 Tablet by mouth every evening. 90 Tablet 3 02/14/2023 02/21/2024 Discontinue d(Refill) documented as of this encounter (statuses as of 02/22/2024) Active Problems Problem Noted Date Diagnosed Date Prediabetes 11/10/2020 Mixed hyperlipidemia 11/05/2018 History of prostate cancer 11/05/2018 Erectile dysfunction 11/05/2018 documented as of this encounter (statuses as of 02/22/2024) Immunizations Name Administration Dates Next Due COVID-19 mRNA, LNP-s, No Pre serve, 2-Dose Series (Moderna) 12/26/2020,11/21/2020 COVID-19, mRNA, LNP-s, PF, B ooster, 100mcg/0.5mg (Moderna) 08/20/2021 Covid-19, Mrna, Lnp-s, Pf, B ivalent, 50 Mcg, IM, 12 yrs and above (Moderna) 03/01/2023 HEP A - Hepatitis A (Adult > 18 yrs) 06/06/2018 Pneumococcal Conjugate Vacc, 13 Valent (Prevnar) 09/04/2017 Pneumococcal Polysaccharide PPV23 (Pneumovax) 09/07/2018 Seasonal Influenza Virus Vac cine, Unspecified Formulation 07/26/2017,08/05/2016,08/01/2014,08/13,07/06/2012 Seasonal Influenza, Quadriva lent Hd, 65+ Yrs 08/08/2022,07/30/2021,07/28/2020 Seasonal Influenza, Split, I IV3, With Preserve, Inj 07/12/2019,06/03/2018 Seasonal Influenza, Trivalen t, Adjuvanted, 65+ yrs 07/12/2019 TD - Tetanus/Diptheria (ADULT) 10/09/1998 TDAP (age 10 and older)(Boostrix) 11/16/2018 TDAP (age 11 and older)(Adacel) 07/14/2008 Typhoid Parenteral 05/30/2018 Varicella Zoster Vaccine (Adult) 02/22/2012 Zoster Vaccine Recombinant (Shingrix) 05/26/2020 ,12/20/2019 documented as of this encounter Social History Tobacco Use Types Packs/Day Years Used Date Smoking Tobacco: Never Smokeless Tobacco: Never Alcohol Use Standard Drinks/Week Comments Yes 0 (1 standard drink = 0.6 oz pur e alcohol) AUDIT-C Answer Date Recorded Frequency of Alcohol Consumption 4 or more times a week 11/05/2018 Average Number of Drinks 1 or 2 019 Frequency of Binge Drinking Never 04/2019 PHQ-2 Answer Date Recorded PHQ Adult Total Score 0 02/14/2023 Hunger Vital Sign Answer Date Recorded Within the past 12 months, y ou worried that your food would run out before you got the money to buy more. Never true 02/15/20 23 Within the past 12 months, t he food you bought just didn't last and you didn't have money to get more. Never true 02/14/2023 Sex and Gender Information Value Date Recorded Sex Assigned at Male 11/07/2019 7:52 AM EST Gender Identity Male 11/07/2019 7:52 AM EST Sexual Orientation Choose not to disclose 2019 7:52 AM EST Job Start Date Occupation Industry Not on file Not on file Not on file documented as of this encounter Miscellaneous Notes * Telephone Encounter - Joseline Fagan RPh - 02/22/2024 12:38 PM EDTRefused Prescriptions: Disp Refills Simvastatin 40 MG Oral Tablet (Zocor) 90 Tab*3 Sig: TAKE ONE TABLET BY MOUTH EVERY EVENINGRefused By: JOSELINE FAGAN for Refusal: Duplicate Request------- documented in this encounter Plan of Treatment Upcoming Encounters Date Type Department Care Team (Late st Contact Info) Description 05/13/2024 12:00 PM EDT Office Visit General Internal Medicine [facility] [address] [place] [address] Zeyad Brownlee MD [address] [place] [address] Health Maintenance Due Date Last Done Comments Hepatitis C Screening 1969 Cologuard 1996 Fecal Occult Blood Test 1996 Sigmoidoscopy 1996 COVID-19 Vaccine ( season) 2023 03/01/2023, 08/20/2021, 12/26/2020, Additional history exists Depression Screening 02/15/2024 02/14/2023 Influenza Vaccine (FLU shot) (Season Ended) 2024 08/08/2022, 08/08/2022, 08/13/2021, Additional history exists HbA1c 12/31/2024 01/01/2024, 0 03/2023, 12/01/2021, Additional history exists Colonoscopy 08/03/2025 08/03/2015 Colorectal Cancer Screening 08/03/2025 DTaP,Tdap,and Td Vaccines (3 - Td or Tdap) 11/16/2028 11/16/2018, 07/14/2008, 10/09/1998 Lipid Panel 12/31/2028 01/01/2024, 0 03/2023, 12/01/2021, Additional history exists Pneumococcal Vaccine: 65+ Years Completed 09/07/2018, 09/04/2017 Zoster Vaccines Completed 05/26/2020, 12/01, 02/22/2012 GARDASIL-HPV IMMUNIZATION SERIES Aged Out No longer eligible based on patient's age to complete this topic Hepatitis B Aged Out No longer eligi ble based on patient's age to complete this topic MENINGOCOCCAL (MENACTRA/MENVEO) Aged Out No longer eligible based on patient's age to complete this topic documented as of this encounter Medical Devices Not on filedocumented as of this encounter Visit Diagnoses Diagnosis Mixed hyperlipidemia documented in this encounter Care Teams Regional Service Manager Relationship Specialty Start Date End Date Zeyad Brownlee MD [address] [place] [address] PCP - General Internal Medicine 11/06/18 documented as of this encounter
--- OUTSIDE RECORDS SUMMARY | 2024-08-06 15:32 | External Medical Summary | Summary of Care ---
Author Name Unknown Organization [facility] Address [address] [place] [address] Phone [phone] Care Team Providers Care Guest Associate Name Role Phone Zeyad Yousif MD Primary Care Provider + Reason for Visit * Reason Onset Date Comments Medication Refill 02/21/2024 Encounter Details Date Type Department Care Team (Late st Contact Info) Description 02/21/2024 Refill General Internal Medicine [facility] [address] [place] [address] Zeyad Yousif MD [address] [place] [address] Mixed hyperlipidemia Allergies No known active allergiesdocumented [...] Tablet by mouth every evening. 90 Tablet 0 02/22/2024 Active Simvastatin 40 MG Oral Tablet (Zocor)Indications:M [...] encounter Miscellaneous Notes * Telephone Encounter - Héctor Fagan RPh - 02/22/2024 12:39 PM EDTSigned Prescriptions: Disp Refills Simvastatin 40 MG Oral Tablet (Zocor) 90 Tab*0 Sig: Take 1 Tablet by mouth every evening.Authorizing Provider: ZEYAD YOUSIF User: HÉCTOR FAGAN * Telephone Encounter - Héctor Fagan RPh - 02/22/2024 12:39 PM EDT RX authorized. Zero refills given until upcoming appt. 05/13/2024 Thank you, Héctor Fagan, PharmD Clinical Pharmacist [facility] ([facility]) [phone] 02/22/2024, 12:39 PM documented in this encounter Plan of Treatment Upcoming Encounters Date Type Department Care Team (Late st Contact Info) Description 05/13/2024 12:00 PM EDT Office Visit General Internal Medicine [facility] [address] [place] [address] Zeyad Yousif MD [address] [place] [address] Health Maintenance Due Date Last Done Comments Hepatitis C Screening 1969 Cologuard 1996 Fecal Occult Blood Test 1996 Sigmoidoscopy 1996 COVID-19 Vaccine ( season) 2023 03/01/2023, 08/20/2021, 12/26/2020, Additional history exists Depression Screening 02/15/2024 02/14/2023 Influenza Vaccine (FLU shot) (Season Ended) 2024 08/08/2022, 08/08/2022, 08/13/2021, Additional history exists HbA1c 12/31/2024 01/01/2024, 02/0 03/2023, 12/01/2021, Additional history exists Colonoscopy 08/03/2025 08/03/2015 Colorectal Cancer Screening 08/03/2025 DTaP,Tdap,and Td Vaccines (3 - Td or Tdap) 11/16/2028 11/16/2018, 07/14/2008, 10/09/1998 Lipid Panel 12/31/2028 01/01/2024, 02/0 03/2023, 12/01/2021, Additional history exists Pneumococcal Vaccine: [...] hyperlipidemia documented in this encounter Care Teams Guest Associate Relationship Specialty Start Date End Date Zeyad Yousif MD [address] [place] [address] PCP - General Internal Medicine 11/06/18 documented as of this encounter
--- OUTSIDE RECORDS SUMMARY | 2024-08-06 15:32 | External Medical Summary | Summary of Care ---
Author Name Unknown Organization [facility] Address [address] [place] [address] Phone [phone] Care Team Providers Care Exercise Physiologist Certified Name Role Phone Zeyad Brownlee MD Primary Care Provider + Reason for Visit * Reason Comments Physical-Exam Complete physical ex am. Pt denied any new concerns Encounter Details Date Type Department Care Team (Late st Contact Info) Description 05/13/2024 12:00 PM EDT Office Visit General Internal Medicine [facility] [address] [place] [address] Zeyad Brownlee MD [address] [place] [address] Mixed hyperlipidemia*; Prediabetes; Travel advice encounter; Need for hepatitis C screening test; History of prostate cancer; Encounter for long-term (current) use of medications Allergies No known active allergiesdocumented as of this encounter (statuses as of 05/13/2024) Medications Medication Sig Dispensed Refills Start Date End Date Status fish oil concentrate (OMEGA-3) 1000 MG CAPS Take 1 Capsule by mouth in the morning. 60 Cap 5 11/05/2018 Active Ibuprofen 200 MG Oral Tablet Take 1 Tablet by mouth every 4 hours as needed for Pain. 100 Tab 5 11/05/2018 Active Multiple Vitamin Tablet Take 1 Tablet by mouth in the morning. 11/05/2018 Active Sildenafil Citrate 25 MG Oral [...] 1 Tablet by mouth in the morning. Active Simvastatin 40 MG Oral Tablet (Zocor)Indications:M ixed hyperlipidemia Take 1 Tablet by mouth every evening. 90 Tablet 3 05/13/2024 Active Simvastatin 40 MG Oral Tablet (Zocor)Indications:M ixed hyperlipidemia Take 1 Tablet by mouth every evening. 90 Tablet 02/22/2024 05/13/2024 Discontinue d(Refill) documented as of this encounter (statuses as of 05/13/2024) Active Problems Problem Noted Date Diagnosed Date Prediabetes 11/10/2020 Mixed hyperlipidemia 11/05/2018 History of prostate cancer 11/05/2018 Erectile dysfunction 11/05/2018 documented as of this encounter (statuses as of 05/13/2024) Immunizations Name Administration Dates Next Due COVID-19 [...] 10/09/1998 TDAP (age 10 and older)(Boostrix) 11/16/2018 TDAP, Age 7 and older, IM (Adacel) 07/14/2008 Typhoid Parenteral 05/30/2018 Varicella Zoster Vaccine (Adult) 02/22/2012 Zoster Vaccine Recombinant (Shingrix) 05/26/2020 ,12/20/2019 documented as of this encounter Social History Tobacco Use Types Packs/Day Years Used Date Smoking Tobacco: Never Smokeless Tobacco: Never Tobacco Cessation:Counseling Given: Not Answered Alcohol Use Standard Drinks/Week Comments Yes 0 [...] money to get more. Never true 02/14/2023 Utilities Answer Date Recorded Do you have trouble paying y our heating, water, or electric bill? (Adult - for ages 18 years and over) Not on file 04/16/2024 Is your family able to pay t he heat, water, or electric bill? (Household - for ages 0-17 years) Not on file 04/16/2024 Does your family have access to good internet? (Household - for ages 0-17 years) Not on file 04/16/2024 Social Connections Answer Date Recorded How often do you feel lonely or isolated from those around you? (Adult - for ages 18 years and over) Not on file 04/16/2024 Sex and Gender Information Value Date Recorded Sex Assigned at Male 11/07/2019 7:52 AM EST Gender Identity Male 11/07/2019 7:52 AM EST Sexual Orientation Choose not to disclose 2019 7:52 AM EST Job Start Date Occupation Industry Not on file Not on file Not on file documented as of this encounter Last Filed Vital Signs Vital Sign Reading Time Taken Comments Blood Pressure 122/80 05/13/2024 11:58 AM EDT Pulse 68 05/13/2024 11:58 AM EDT Temperature 36.6 C (97.9 F) 05/13/2024 1 1:58 AM EDT Respiratory Rate - - Oxygen Saturation 98% 05/13/2024 11: 58 AM EDT Inhaled Oxygen Concentration - - Weight 101.3 kg (223 lb 6.4 oz) 024 11:58 AM EDT Height 177.2 cm (5' 9.75") 05/13/2024 1 1:58 AM EDT Body Mass Index 32.28 05/13/2024 11:58 AM EDT documented in this encounter Progress Notes * Zeyad Brownlee MD - 05/13/2024 12:26 PM EDT Chief Complaint Patient presents with Physical-Exam Complete physical exam. Pt denied any new concerns SUBJECTIVE: Leonel Alegria is a 73 year old male with PMH as below who presents for f/u lipids, pre-DM. 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 Just got ! No n/v/d. Did havelow pulse ox in 70% in [place] at altitude, but no symptoms and came up as he was there. No sob ,borges, wheezing when there. Patient Active Problem List Diagnosis Mixed hyperlipidemia History of prostate cancer Erectile dysfunction Prediabetes Current Outpatient Medications Medication Sig Dispense Refill fish oil concentrate (OMEGA-3) 1000 MG CAPS Take 1 Capsule by mouth in the morning. 60 Cap 5 Ibuprofen 200 MG Oral Tablet Take 1 Tablet by mouth every 4 hours as needed for Pain. 100 Tab 5 Multiple Vitamin Tablet Take 1 Tablet by mouth in the morning. Sildenafil Citrate 25 MG Oral Tablet Take 1 Tablet by mouth once. 1-4 hours before intercourse, no more than 1 dose in 24 hours. 10 Tab 5 aspirin enteric coated 81 MG TBEC Take 1 Tablet by mouth in the morning. 100 Tab 3 Cholecalciferol (VITAMIN D3) 2000 units Capsule Take 1 Capsule by mouth in the morning. 30 Cap 5 Zinc 50 MG Oral Tablet Take 1 Tablet by mouth in the morning. Simvastatin 40 MG Oral Tablet (Zocor) Take 1 Tablet by mouth every evening. 90 Tablet 3 No current facility-administered medications for this visit. Review of patient's allergies indicates: No Known Allergies Health Maintenance Due Topic Date Due Hepatitis C Screening Never done COVID-19 Vaccine (2022- season) 2024 Depression Screening 02/15/2024 ROS: CONSTITUTIONAL: No weakness and No fevers, sweats, or chills EYE: No recent significant change in vision, No eye pain, redness, discharge, and No diplopia PULMONARY: No cough, sputum, or hemoptysis, No wheezing, No rales, No shortness of breath, and No recent change in breathing CARDIOVASCULAR: No chest pain, No shortness of breath, No dyspnea on exertion, No orthopnea, No paroxysmal nocturnal dyspnea, No edema, No palpitations, and No syncope GASTROINTESTINAL: No abdominal pain, No change in bowel habits, No significant heartburn, No significant change in appetite, No nausea, vomiting, diarrhea, or constipation, No hematemesis, No blood in stools or black tarry stools, No abdominal bloating or early satiety, and No dysphagia ALL OTHER SYSTEMS NEGATIVE I reviewed social, PMH, PSH, and family history and updated where needed. Social History Socioeconomic History Marital status: Domestic Partner Spouse name: Not on file Number of children: 3 Years of education: Not on file Highest education level: Not on file Occupational History Occupation: [employer] Tobacco Use Smoking status: Never Smokeless tobacco: Never Substance and Sexual Activity Alcohol use: Yes Drug use: No Sexual activity: Yes Partners: Female Other Topics Concern Not on file Social History Narrative Not on file Social Determinants of Health Financial Resource Strain: Not on file Food Insecurity: No Food Insecurity (02/14/2023) Hunger Vital Sign Worried About Running Out of Food in the Last Year: Never true Ran Out of Food in the Last Year: Never true Transportation Needs: Not on file Social Connections: Unknown (04/16/2024) Social Connections How often do you feel lonely or isolated from those around you? (Adult - for ages 18 years and over): Not on file Housing Stability: Not on file Past Medical History: Diagnosis Date Erectile dysfunction 11/05/2018 History of prostate cancer 11/05/2018 Mixed hyperlipidemia 11/05/2018 Prediabetes 11/10/2020 Transient global amnesia Past Surgical History: Procedure Laterality Date LAPAROSCOPY; CHOLECYSTECTOMY 10/2004 RADICAL PROSTATE REMOVAL 10/2011 robotic REPAIR/GRAFT ACHILLES TENDON Family History Problem Relation Name Age of Onset Other (chf) Mother Heart attack Father Other (HIV) Brother OBJECTIVE: PHYSICAL EXAM: BP 122/80 | Pulse 68 | Temp 36.6 C (97.9 F) (Tympanic) | Ht 1.772 m (5' 9.75") | Wt 101.3 kg (223 lb 6.4 oz) | SpO2 98% | BMI 32.28 kg/m | BSA 2.23 m General: alert, healthy, and no distress Head: Normocephalic, No masses, lesions, tenderness or abnormalities Eye Exam: conjunctiva are pink and non-injected, sclera clear Ears: External ears normal, Canals clear, TM's Normal Heart: regular rate & rhythm, no murmur, no gallops, PMI non-displaced, S-1 normal, and S-2 normal Lungs: normal respiratory rate and rhythm, lungs clear to auscultation Abdomen: abdomen soft, non-tender, obese, normal bowel sounds, and no masses or organomegaly Psych: normal affect, no flight of ideas or tangential thought, good eye contact, no pressured speech ASSESSMENT: E78.2 Mixed hyperlipidemia (primary encounter diagnosis) R73.03 Prediabetes Z71.84 Travel advice encounter Z11.59 Need for hepatitis C screening test Z85.46 History of prostate cancer Z79.899 Encounter for long-term (current) use of medications PLAN: Mixed hyperlipidemia (Primary) - Simvastatin 40 MG Oral Tablet (Zocor); Take 1 Tablet by mouth every evening. - COMPREHENSIVE METABOLIC PANEL; Future; Expected date: 04/29/2025 - LIPID PANEL WITH DIRECT LDL IF TG IS HIGH; Future; Expected date: 04/29/2025 Cont med Labs next year Prediabetes - HEMOGLOBIN A1C; Future; Expected date: 04/29/2025 Follow A1c Travel advice encounter Discussed med to prevent altitude sickness, declines for now as never had issue, will let me know Need for hepatitis C screening test - HEPATITIS C ANTIBODY SCREEN WITH PROGRESSION TO HEPATITIS C RNA QUANTITATIVE; Future; Expected date: 04/29/2025 Discussed, will do History of prostate cancer - PSA; Future; Expected date: 04/29/2025 Encounter for long-term (current) use of medications - 25-HYDROXY VITAMIN D; Future; Expected date: 04/29/2025 Follow Up: Return in about 1 year (around 05/13/2025), or if symptoms worsen or fail to improve, forFasting Labs 2-5 Days Before Next Visit. | For: Fasting Labs 2-5 Days Before Next Visit Zeyad Brownlee MD documented in this encounter Nursing Notes * Shayna Blakely MED ASSIST - 05/13/2024 11:58 AM EDT Chief Complaint Patient presents with Physical-Exam Complete physical exam. Pt denied any new concerns documented in this encounter Plan of Treatment Upcoming Encounters Date Type Department Care Team (Late st Contact Info) Description 05/13/2025 8:40 AM EDT Office Visit General Internal Medicine [facility] [address] [facility] [place] [address] Zeyad Brownlee MD [address] [place] [address] Scheduled Orders Name Type Priority Associated Diagnoses Orde r Schedule COMPREHENSIVE METABOLIC PANEL Lab Routine Mixed hyperlipidemia Expected: 04/29/2025 (Approximate), Expires: 05/13/2025 LIPID PANEL WITH DIRECT LDL IF TG IS HIGH Lab Routine Mixed hyperlipidemia Expected: 04/29/2025, Expires: 05/13/2025 PSA Lab Routine History of prostate cancer Expected: 04/29/2025 (Approximate), Expires: 05/13/2025 HEMOGLOBIN A1C Lab Routine Prediabetes Expected: 04/29/2025 (Approximate), Expires: 05/13/2025 25-HYDROXY VITAMIN D Lab Routine Encounter for long-term (current) use of medications Expected: 04/29/2025 (Approximate), Expires: 05/13/2025 HEPATITIS C ANTIBODY SCREEN WITH PROGRESSION TO HEPATITIS C RNA QUANTITATIVE Lab Routine Need for hepatitis C screening test Expected: 04/29/2025 (Approximate), Expires: 05/13/2025 Health Maintenance Due Date Last Done Comments Hepatitis C Screening 1969 Cologuard 1996 Fecal Occult Blood Test 1996 Sigmoidoscopy 1996 COVID-19 Vaccine (2022-24 season) 2024 10/03/2023, 03/01/2023, 08/20/2021, Additional history exists Depression Screening 02/15/2024 02/14/2023 Influenza Vaccine (FLU shot) (#1) 2024 07/14/2023, 08/08/2022, 08/08/2022, Additional history exists HbA1c 12/31/2024 01/01/2024, 02/0 03/2023, 12/01/2021, Additional history exists Colonoscopy 08/03/2025 08/03/2015 Colorectal Cancer Screening 08/03/2025 DTaP,Tdap,and Td Vaccines (3 - Td or Tdap) 11/16/2028 11/16/2018, 07/14/2008, 10/09/1998 Lipid Panel 12/31/2028 01/01/2024, 02/0 03/2023, 12/01/2021, Additional history exists Pneumococcal Vaccine: 65+ Years Completed 09/07/2018, 09/04/2017 Zoster Vaccines Completed 05/26/2020, 12/01, 02/22/2012 HPV (Gardasil) Vaccine Aged Out No lo nger eligible based on patient's age to complete this topic Hepatitis B Vaccine Aged Out No longe r eligible based on patient's age to complete this topic MENINGOCOCCAL (MENACTRA/MENVEO) Aged Out No longer eligible based on patient's age to complete this topic documented as of this encounter Medical Devices Not on filedocumented as of this encounter Visit Diagnoses Diagnosis Mixed hyperlipidemia- Primary Prediabetes Other abnormal glucose Travel advice encounter Other specified counseling Need for hepatitis C screening test Special screening examination for other specified viral diseases History of prostate cancer Personal history of malignant neoplasm of prostate Encounter for long-term (current) use of medications Encounter for long-term (current) use of other medications documented in this encounter Care Teams Exercise Physiologist Certified Relationship Specialty Start Date End Date Zeyad Brownlee MD [address] [place] [address] PCP - General Internal Medicine 11/06/18 documented as of this encounter
--- NOTE | 2024-08-06 16:27 | Neurology Consultation ---
Date of Consultation August 06, 2024 Assessment & Plan (1) TIA (transient ischemic attack): R hand weakness concerning for TIA in a 73 yo M with HLD and HTN. Suspect the mechanism was small vessel, however, MRI is otherwise unremarkable for significant small vessel changes. Recommend appropriate vascular risk factor modification as follows: -- Continue statin for LDL goal <70 -- Continue aspirin and plavix for 21 days, then back to aspirin monotherapy -- Echo results pending -- HTN followup with PCP -- Neurology followup in 4-6 weeks, otherwise can be discharged from our perspective Telehealth Consultation Telehealth Information Telehealth Information: I performed this visit using a real-time telehealth connection between my location and the patients location ([facility]). After connecting through interactive tele-video, patient was identified by name and date of and/or wristband check.Patient (or authorized healthcare account service representative) was informed that this was a telemedicine visit and it was being conducted confidentially over secure lines. My office door was closed and no one else was present in the room with me.Patient (or authorized healthcare account service representative) provided consent to proceed with the visit, expressed an understanding of privacy and security of the telemedicine visit, and gave permission to have a hospital account service representative in the room in order to assist with the visit and to conduct portions of the visit, as needed. I informed the patient (or authorized healthcare account service representative) that I reviewed their record and presented the opportunity for them to ask any questions regarding the visit today. The patient agreed to participate. History of Present Illness Reason for Consultation: TIA Requesting Physician: Dr. Hernandez Attending Physician: Robert Hernandez MD History of Present Illness Leonel Alegria is a 73 yo M presenting with transient R hand weakness this morning. 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 There was potentially some numbness of the arm but no radicular pain, no upper arm weakness. Since then the weakness has resolved. He denied any associated facial weakness, gait difficutly, speech change or vision change. This has never happened to him before. Allergies Allergy/AdvReac Type Severity Reaction Status Date / Time No Known Allergies Allergy Unknown Verified 02/07/22 10:45 Home Medications Medication Instructions Recorded Confirmed Type aspirin 81 mg tablet,delayed 81 mg PO DAILY 04/27/20 08/06/24 History release simvastatin 40 mg tablet 40 mg PO DAILY 04/27/20 08/06/24 History Patient History Social History Smoking Status: Never smoker Hx Alcohol Use: No Hx Substance Use: No Preferred Language: Turkish Title Closer Required: No Beliefs That Will Affect Care: None Current Living Situation: Spouse Other Information That Helps Us Care for You: No Feels Safe at Home: Yes Safety Concerns: Feels Safe At This Time Review of Systems +R hand weakness, resolved Physical Exam Neurological Examination: Mental Status: Awake and alert. Oriented to person, place, and time. Fluent. Comprehension intact. Affect appropriate. Cranial Nerves: II: multani grossly intact. III/IV/: Versions intact without nystagmus, no gaze preference. VII: Facial expression symmetric VIII: Hearing intact to voice Motor: Strength was symmetric and antigravity throughout. Pronator drift was absent. There were no abnormal movements. Results & Data Vital Signs (Past 12 Hours) Vital Signs Temp Pulse Pulse Resp BP BP Pulse Ox 08/06/24 15:47 63 08/06/24 14:41 36.5 C 62 19 169/101 H 96 08/06/24 14:22 64 20 164/102 H 96 08/06/24 13:45 150/97 H 95 08/06/24 13:30 97 08/06/24 13:27 96 08/06/24 13:15 149/87 H 08/06/24 13:15 96 08/06/24 13:03 151/95 H 96 08/06/24 12:48 142/91 H 96 08/06/24 12:42 63 16 151/100 H 96 08/06/24 12:00 72 17 158/105 H 96 08/06/24 11:30 158/102 H 08/06/24 11:17 66 20 174/98 H 96 08/06/24 11:12 69 14 173/101 H 96 08/06/24 10:53 166/111 H 08/06/24 10:42 70 16 186/106 H 98 08/06/24 10:30 175/114 H 08/06/24 10:23 69 08/06/24 10:19 69 20 166/107 H 95 08/06/24 10:00 98 08/06/24 09:57 72 23 193/106 H 98 08/06/24 09:49 36.1 C L 75 16 184/103 H 96 O2 Del Method 08/06/24 15:47 08/06/24 14:41 Room Air 08/06/24 14:22 08/06/24 13:45 08/06/24 13:30 08/06/24 13:27 08/06/24 13:15 08/06/24 13:15 08/06/24 13:03 08/06/24 12:48 08/06/24 12:42 Room Air 08/06/24 12:00 08/06/24 11:30 08/06/24 11:17 Room Air 08/06/24 11:12 08/06/24 10:53 08/06/24 10:42 08/06/24 10:30 08/06/24 10:23 08/06/24 10:19 Room Air 08/06/24 10:00 Room Air 08/06/24 09:57 Room Air 08/06/24 09:49 Room Air Diagnostic Findings MRI brain - Unremarkable CTA head and neck - Unremarkable
[2024-08-06] MEDS: CLOPIDOGREL BISULFATE 300 MG TAB PO STA (21:17)
[2024-08-07 07:11] LABS: Basophils # (auto) 0.05 K/uL (0.00-0.20); Basophils % (auto) 0.9 %; Eosinophils # (auto) 0.15 K/uL (0.00-0.50); Eosinophils % (auto) 2.8 %; Hemoglobin 15.3 g/dl (14.0-18.0); Immature Granulocytes # (auto) 0.03 K/uL (0.01-0.20); Immature Granulocytes % (auto) 0.6 %; Lymphocytes # (auto) 0.94 K/uL (1.20-3.40); Lymphocytes % (auto) 17.2 %; Mean Corpuscular Hemoglobin 30.9 pg (25.0-34.0); Mean Corpuscular Volume 90.9 fL (80.0-100.0); Mean Platelet Volume 10.5 fL (9.4-12.4); Monocytes # (auto) 0.73 K/uL (0.11-0.59); Monocytes % (auto) 13.4 %; Neutrophils # (auto) 3.55 K/uL (1.40-6.50); Neutrophils % (auto) 65.1 %; Platelet Count 201 K/uL (130-400); RDW Coefficient of Variation 12.5 % (11.5-14.5); RDW Standard Deviation 40.9 fL (36.4-46.3); Red Blood Count 4.95 M/uL (4.70-6.10); White Blood Count 5.45 K/ul (4.8-10.8)
[2024-08-07 07:23] LABS: Estimated Average Glucose 117 mg/dl; Hemoglobin A1C 5.7 % (4.5-5.6)
[2024-08-07 07:56] LABS: BUN Creatinine Ratio 16.7 (10-20); Calcium 8.7 mg/dl (8.6-10.3); Chol HDL Ratio 2.6 (0-5); Creatinine Clr Calc Pharmacy 84.4 ml/min; Potassium 3.8 mmol/L (3.5-5.1)
[2024-08-07] MEDS: ASPIRIN 81 MG ECTAB PO SCH (08:21)
[2024-08-07] MEDS: SIMVASTATIN 40 MG TAB PO SCH (08:21)
[2024-08-07] MEDS ORDERED: CLOPIDOGREL BISULFATE 75 MG TAB PO SCH ×2 (09:00→21:00)
[2024-08-07] MEDS ORDERED: ASPIRIN 81 MG ECTAB PO SCH (09:00)
[2024-08-07 09:42] VITALS: O2SAT 98
[2024-08-07] MEDS ORDERED: INFLUENZA VACC TS2024-25(65y+)/PF (IIV3) 0.5mL Syr IM ONE (12:00)
[2024-08-07 12:09] VITALS: BP 132/74; PULSE 88; RESP 20; TEMP 98.2
[2024-08-07] MEDS ORDERED: STROKE PATIENT DISCHARGE STA (12:34)
--- NOTE | 2024-08-07 12:46 | Discharge Summary ---
Date of Service August 07, 2024 Admission HPI Per Admitting Provider The patient is a 73-year-old male with a past medical history of hyperlipidemia, prediabetes, transient global amnesia, prostate CA who presents to the ED on 08/06/2024 with complaints of right upper extremity numbness/weakness. Patient reports waking up this morning around 9 AM noticing that his hand felt numb and that the numbness traveled up to his right arm. He took his 81 mg of aspirin and took 2 Excedrin and came to the ER. He reports being compliant with his daily aspirin. On arrival to the ED stroke alert was called and neurostroke recommended Plavix load and daily aspirin. TNK was not indicated at this time. The patient had no other neurodeficits on exam Head CT was negative. Head/neck CTA was negative. Chest CTA was negative The patient's labs are fairly unremarkable The patient will be admitted for further monitoring Admission Exam Per Admitting Provider Constitutional: WD/WN, vitals as above Eyes: PERRL, conjunctivae normal, anicteric sclerae ENMT: external ear and nose normal, oropharynx normal Neck: trachea midline, no thyromegaly Respiratory: normal respiratory effort, lungs clear to auscultation Cardiovascular: RRR, no murmur, no edema Gastrointestinal (Abdomen): normal bowel sounds, soft, nontender, no hepatosplenomegaly Musculoskeletal: no cyanosis or clubbing, extremities motor strength 5/5 Skin: no rashes, warm and dry Neurologic: PERRL, EOMI, accommodation nl, no face palsy, no dysarthria (Still complaining of right hand numbness, strength is equal) Psychiatric: A+Ox3, euthymic affect Lymphatic: no cervical or axillary lymphadenopathy Principal Diagnosis TIA Discharge Exam Constitutional: WD/WN, vitals as above Eyes: PERRL, conjunctivae normal, anicteric sclerae ENMT: external ear and nose normal, oropharynx normal Neck: supple Respiratory: normal respiratory effort, lungs clear to auscultation Cardiovascular: RRR, no murmur, no edema Gastrointestinal (Abdomen): normal bowel sounds, soft, nontender Musculoskeletal: extremities motor strength 5/5 Skin: no rashes, warm and dry Neurologic: PERRL, EOMI, no face palsy, no dysarthria, moves extremities Psychiatric: A+Ox3, euthymic affect Discharge Data Allergies Allergy/AdvReac Type Severity Reaction Status Date / Time No Known Allergies Allergy Unknown Verified 02/07/22 10:45 Consultations 08/06/24 11:40 ED Decision to Admit Stat 08/06/24 14:40 Consult Neurology Routine Ordered Studies 08/06/24 10:05 CT angio chest dissec wo/w con Stat CT angio head w con Stat CT angio neck with con Stat CT head/brain wo con Stat IMPRESSION: 1. No acute intracranial hemorrhage, evidence of acute territorial infarction, or other acute intracranial disease process. 2. No occlusion, hemodynamically significant stenosis, or dissection in the major cervical arteries. 3. No occlusion, hemodynamically significant stenosis, aneurysm, dissection, or arteriovenous malformation in the major intracranial arteries. 08/06/24 11:48 MR brain wo con Routine IMPRESSION: No acute intracranial abnormality. Hospital Course (1) Stroke-like symptoms: (2) Hypertension: Plan Assessment and plan: RUE weakness CVA ruled outpossible TIA: Head/neck/chest CTA unremarkable, head CT negative Head MRI negative, differential diagnosis includes carpal tunnel/cervical radiculopathy - neurochecks - echo obtained - poss. small PFO Symptoms now resolved and pt was seen by neurology Plavix/aspirin for 21 days then back on ASA, cont. statin Follow up w/ neurology arranged Hx HLD/prediabetes: Continue statin, checked lipid panel, current LDL 56, current Hgb A1c 5.7% BIFASCICULAR BLOCK not seen on previous EKG many years ago checked echo - LV syst. function normal 55-60%, LV wall motion is normal monitor in Telemetry while inpt By CMS guidelines, a determination that the admission or continued stay is not medically necessary has been made by a member of the UR committee and a physician for this hospital stay, therefore a Code 44 will be completed and the Inpatient admission will be changed to outpatient. Total Time Total Time Spent Total Time Spent (In Minutes): 40 Discharge Plan Discharge Items Patient Disposition: Home - Self-Care Reason For Visit: RUE NUMBNESS, R/O CVA Discharge Diagnosis: TIA Activity: Per Instructions section Non-emergency contact: Primary Care Provider and Neurologist Call non-emergency contact if: you have any medication questions and your symptoms worsen Follow-up/Referrals: Zeyad Brownlee MD [Primary Care Provider] - (Date & Time 08/15/2024 11:20 AM Provider Zeyad Brownlee MD Department General Internal Medicine [facility] ) Katelyn Cespedes PA-C [Physician Senior It Business Analyst] - (Date & Time 09/05/2024 12:30 PM Provider Katelyn Cespedes PA-C Department Neurology [facility] ) Diet: Heart Healthy Addtl Attending Provider Instructions: Follow up with your primary care doctor and neurologist as above. Take aspirin and plavix for 21 days, then you can take aspirin alone - discuss this with your neurologist. Pending Studies at Discharge: No Stand-Alone Forms: My [facility] [employer], Smoking Cessation Medications and DC Order Prescriptions: New clopidogrel 75 mg Tablet 75 mg PO HS Qty: 20 0RF Continued aspirin 81 mg Tablet,Delayed Release (Dr/Ec) 81 mg PO DAILY simvastatin 40 mg tablet 40 mg PO DAILY Discharge Orders: Discharge Order (Routine); Ordered 08/07/24 Ordered By: Pramod Ortiz Admission Data Admit Date/Time: 08/06/24 11:43 Attending Provider: Pramod Ortiz Admit Provider: Robert Hernandez Primary Care Provider: Zeyad Brownlee Other Providers: Robert Hernandez; Pito Rock
--- NOTE | 2024-08-07 15:18 | Electrocardiogram Report ---
Test Reason : Blood Pressure : */* mmHG Vent. Rate : 71 BPM Atrial Rate : 71 BPM P-R Int : 236 ms QRS Dur : 160 ms QT Int : 444 ms P-R-T Axes : 44 -70 -14 degrees QTcB Int : 482 ms Sinus rhythm with 1st degree A-V block Right bundle branch block Left anterior fascicular block Bifascicular block Abnormal ECG When compared with ECG of 06-Aug-2024 10:00, MN interval has increased Confirmed by Thee Elizondo ([id number]) on 08/07/2024 3:18:07 PM Referred By: REFERRED SELF Confirmed By: Thee Elizondo
== END 2024-08-07 14:16 | disposition home or self-care (01) | DRG 69 ==
LOC: ED 09:43 → INTOOBSV 11:43 → SUATTDRO 11:43 → EDINP 11:43 → 2S 14:34